=== PATIENT | female | born 1985 | race Asian ===

== ENCOUNTER 2018-01-30 13:03 | Outpatient (REF) | payer BC, SELFPAY | END 2018-01-30 13:23 | LOC: NCHCN 13:03 | PROVIDERS: PCP Family Medicine; Visit Provider Family Medicine | DX: N39.0 Urinary tract infection, site not specified (principal) | CPT/HCPCS: 87086 ==

== ENCOUNTER 2018-04-24 10:34 | Outpatient (REF) | payer BC, SELFPAY ==
--- NOTE | 2018-04-24 09:30 | PAPFT_PTH ---
PATIENT: Stephen Beckham LOC: [facility] U#:[id number] AGE/SX: 33/F ROOM: RE04/24/[address]: ALFIE Corona : 1985 BED: DIS: 04/24/2018 SPEC #: [id number] RECD: 04/24/18 13:08 STATUS: DEMETRISGiuliana DELCID #: [id number] ÓSCAR: 04/24/18 09:[address]: Gisselle Wall DEPT: [facility] Cytology RECD BY: Hui Dumont ENTERED: 04/24/18 13:09 SP TYPE: PAPFT OTHR DR: eDb Macias Tissues: 1 - CX/ENDOCX FOR PAP SMEARS Procedures: PAP THIN PREP/UVM Screening HPV DNA PROBE Comments: [id number]
[2018-04-25 15:27] LABS: Chlamydia Result Negative; GC Result Negative
== END 2018-04-24 10:54 ==
LOC: LBN 10:34
PROVIDERS: PCP Family Medicine; Visit Provider Nurse Practitioner Family
DX: Z11.3 Encounter for screening for infections with a predominantly sexual mode of transmission (principal); Z12.4 Encounter for screening for malignant neoplasm of cervix; Z11.51 Encounter for screening for human papillomavirus (HPV)
CPT/HCPCS: 87491; 87591; 88142; 87624

== ENCOUNTER 2018-04-30 00:29 | Outpatient (CLI) | payer BC, SELFPAY ==
--- NOTE | 2018-04-30 09:53 | DI.US_ITS ---
SYMPTOM/DIAGNOSIS: LONG IRREGULAR MENSES, N92.6 PELVIC ULTRASOUND: Transabdominal and transvaginal exams were performed. The uterus is retroverted and measures 7.7 x 4.5 x 5.9 cm. No fibroids are identified. The endometrial stripe appears homogeneous and measures 8 mm in thickness. There is a small amount of free fluid. There is a small involuting cyst on the left ovary. No suspicious masses are seen. There is no evidence of torsion. IMPRESSION: Pelvic ultrasound is within normal limits.
== END 2018-04-30 00:49 ==
PROVIDERS: PCP Family Medicine; Visit Provider Nurse Practitioner Family
DX: N92.6 Irregular menstruation, unspecified (principal); N83.292 Other ovarian cyst, left side
CPT/HCPCS: 76830; 76856

== ENCOUNTER 2020-12-24 21:32 | Outpatient (REF) | payer BC, SELFPAY | END 2020-12-24 21:33 | disposition home or self-care (01) | LOC: NCHCN 21:32 | PROVIDERS: PCP Family Medicine; Visit Provider Family Medicine | DX: N39.0 Urinary tract infection, site not specified (principal) | CPT/HCPCS: 87077; 87086; 87186 ==

== ENCOUNTER 2021-04-08 19:22 | Outpatient (REF) | payer BC, SELFPAY ==
[2021-04-08 15:35] LABS: HCT 41.3 % (36.0-46.0); HGB 14.1 g/dL (11.2-15.7); MCH 30.5 pg (27.0-33.0); MCHC 34.1 % (32.0-36.0); MCV 89.4 fL (80-95); MPV 10.4 fL (8.0-11.0); Platelet Count 198 10^3/uL (130-400); RBC 4.62 10^6/uL (3.93-5.22); RDW 11.6 % (11.7-14.6); RDW-SD 37.3 fL; WBC 4.78 10^3/uL (4.4-10.8)
[2021-04-08 16:07] LABS: Anion Gap 7.3 mmol/L (3-11); BUN 13 mg/dL (7-18); CO2 29.7 mmol/L (21.0-32.0); CREATININE 0.6 mg/dL (0.55-1.02); Calcium 8.9 mg/dL (8.5-10.1); Chloride 105 mmol/L (98-107); Glucose 77 mg/dL (74-106); Potassium 4.2 mmol/L (3.5-5.1); Sodium 142 mmol/L (136-145)
[2021-04-08 16:08] LABS: Iron 137 ug/dL (50-170); Total Iron Binding Capacity 339 ug/dL (250-450); Transferrin Sat 40 % (15-50)
== END 2021-04-08 19:23 | disposition home or self-care (01) ==
LOC: NCHCN 19:22
PROVIDERS: PCP Family Medicine; Visit Provider Nurse Practitioner Family
DX: Z83.3 Family history of diabetes mellitus (principal); Z86.2 Personal history of diseases of the blood and blood-forming organs and certain disorders involving the immune mechanism
CPT/HCPCS: 80048; 85027; 83540; 83550

== ENCOUNTER 2021-06-17 20:08 | Outpatient (REF) | payer BC, SELFPAY ==
[2021-06-21 14:30] LABS: Helicobacter pylori Ag, Feces Negative (Negative)
== END 2021-06-17 20:09 | disposition home or self-care (01) ==
LOC: NCHCN 20:08
PROVIDERS: PCP Family Medicine; Visit Provider Family Medicine
DX: K21.9 Gastro-esophageal reflux disease without esophagitis (principal)
CPT/HCPCS: 87338

== ENCOUNTER 2021-06-24 09:52 | Outpatient (REF) | payer BC, SELFPAY ==
--- NOTE | 2021-06-24 09:15 | PAPFT_PTH ---
PATIENT: Stephen Beckham LOC: [facility] U#:[id number] AGE/SX: 36/F ROOM: RE06/24/[address]: ALFIE Corona : 1985 BED: DIS: 06/24/2021 SPEC #: [id number] RECD: 06/24/21 12:41 STATUS: ASHER REQ #: [id number] ÓSCAR: 06/24/21 09:[address]: Gisselle Wall DEPT: [facility] Cytology RECD BY: Hui Dumont ENTERED: 06/24/21 12:42 SP TYPE: PAPFT OTHR DR: Deb Macias Tissues: 1 - CX/ENDOCX FOR PAP SMEARS Procedures: PAP THIN PREP/UVM Screening HPV DNA PROBE Comments: [id number]
== END 2021-06-24 09:53 | disposition home or self-care (01) ==
LOC: LBN 09:52
PROVIDERS: PCP Family Medicine; Visit Provider Nurse Practitioner Family
DX: Z12.4 Encounter for screening for malignant neoplasm of cervix (principal); Z11.51 Encounter for screening for human papillomavirus (HPV)
CPT/HCPCS: 88142; 87624

== ENCOUNTER 2021-07-15 18:10 | Outpatient (REF) | payer BC, SELFPAY | END 2021-07-15 18:11 | disposition home or self-care (01) | LOC: NCHCN 18:10 | PROVIDERS: PCP Family Medicine; Visit Provider Family Medicine | DX: R35.0 Frequency of micturition (principal) | CPT/HCPCS: 87086 ==

== ENCOUNTER 2021-07-27 01:17 | Emergency (ER) | payer BC, SELFPAY ==
--- NOTE | 2021-07-27 01:19 | ED.GENADUL_ITS ---
Discharge Plan Disposition Patient Disposition: HOME Condition: Good Discharge Details Clinical Impression: Low back pain Primary Care Provider: Deb Macias ED Provider: Jez Armenta Discharge Instructions Additional Instructions: Your urinalysis is normal as is your blood count and chemistries/kidney function. CT scan shows no evidence of kidney stones or appendicitis or other acute pathology. Please follow-up with primary care as planned. Return to ED for fever, vomiting, new or worsening pain, other concerns. Referrals: Deb Macias [Primary Care Provider] - Medical Decision Making Patient presenting with worsening right lower back pain which seems to radiate to the abdomen. Treated for UTI and dysuria resolved but continues with worsening pain. She is afebrile and looks well. Does have right sided CVAT on exam. Complains of pain in the right suprapubic area with mild tenderness but no guarding or rebound. Urine test is negative. Urinalysis sent. IV established and CBC, BMP sent. Ketorolac given for pain and CT abdomen pelvis to evaluate for possible kidney stone ordered. Patient's urinalysis is completely negative. CBC and BMP normal. CT scan of the abdomen pelvis is negative for any acute pathology, specifically no kidney stones or evidence of appendicitis. Patient will be discharged home to follow- up with primary care as previously scheduled. May consider outpatient pelvic ultrasound but has just seen [employer] for her yearly annual less than a month ago. Return to ED for fever, vomiting, new or worsening pain, or other concerns. Lab Data Lab results reviewed: Yes I reviewed the patient's lab results. HPI General Mode of arrival: ambulatory . Date/Time Provider Initiated Documentation: 07/27/21 01:19 . Limitations to Documentation: no limitations . Information obtained by: patient and RN notes reviewed . HPI Narrative: Patient presents to ED with right lower back pain that radiates to the right lower abdomen. Patient reports having a UTI diagnosed by PCP and was on cephalexin for 10 days. She had dysuria with this in addition to the pain. Pain continues to get worse but dysuria resolved. She denies fever. She denies vomiting or diarrhea. She does endorse some mild nausea. Pain does seem to come and go to some degree and seems worse tonight. She reports having a UTI last fall as well. She is noted right back discomfort since then intermittently. She does have an appointment to see PCP this week but pain seemed worse tonight and she was concerned for kidney stone and came to be evaluated. Related Data Allergies Allergy/AdvReac Type Severity Reaction Status Date / Time doxycycline Allergy Severe Other (See Unverified 07/27/21 01:29 Comment) Review of Systems Narrative: As documented in HPI otherwise negative as below. Const: no fever, chills, weakness Resp: no cough, SOB, pleuritic pain CV: no CP, diaphoresis, edema, syncope GI: no vomiting, diarrhea Neuro: no headache, numbness, focal weakness, confusion PFSH All Active Problems (Updated 07/27/21 @ 04:35 by Jez Armenta MD) Low back pain (Acute) Irregular bleeding (Acute) Medical History No significant past medical history Surgical History section X 2 ( first Breech) Family History Mother No problems noted. Father Diabetes Social History Smoking/Tobacco Use Status: Never Smoking risk assessment performed?: Yes Alcohol Intake: never Drug use: Never Substance use type: does not use Do you feel safe at home: No Do you feel safe in your relationship?: No Female Reproductive History Menstrual control method: condoms History History 0 Para Hx # Term Pregnancies Multiple births Hx # Pregnancies Ectopic pregnancies AB induced Hx Number of Living Children AB spontaneous Exam Narrative Exam Narrative: Const: Thin female in NAD. HEENT: NC/AT. Normal facial exam. Eyes: Normal conjunctiva and sclera. Neck: Supple. Trachea midline. Lungs: Normal respiratory effort. Lungs are clear. Cor: RRR without murmur/gallop. Good radial pulses. GI: Soft and ND. Mild right suprapubic tenderness without guarding or rebound. Back: R CVAT Neuro: A+O x 3. Normal speech, mentation, gait. Cranial nerves II - XII grossly intact. No gross motor or sensory deficit. Ext: No C/C/E. Skin: Warm and dry without rash.
[2021-07-27 01:25] VITALS: BP 112/82; PULSE 73; RESP 16; TEMP 36.8; O2SAT 98
[2021-07-27 01:33] LABS: Bilirubin Negative (Negative); Blood Negative (Negative); Clarity Clear (Clear); Glucose Negative (Negative); Ketones Negative (Negative); Leukocyte Esterase Negative (Negative); Nitrite Negative (Negative); Urobilinogen 0.2 EU/dL (Up TO 0.2)
[2021-07-27] MEDS: Ketorolac 15 MG/ML VIAL IVP (01:53)
[2021-07-27 01:59] LABS: Absolute Basophil Count 0.02 10^3/uL (0.0-0.2); Absolute Eosinophil Count 0.35 10^3/uL (0.0-0.7); Absolute Lymphocyte Count 1.94 10^3/uL (1.2-3.4); Absolute Monocyte Count 0.44 10^3/uL (0.1-0.8); Absolute Neutrophil Count 2.93 10^3/uL (1.2-6.7); Basophils % 0.4; Eosinophils % 6.2; HCT 40.3 % (36.0-46.0); HGB 13.7 g/dL (11.2-15.7); Lymphocytes % 34.2; MCH 30.6 pg (27.0-33.0); MPV 9.4 fL (8.0-11.0); Monocytes % 7.7; Neutrophils % 51.5; Platelet Count 165 10^3/uL (130-400); RBC 4.48 10^6/uL (3.93-5.22); RDW 11.4 % (11.7-14.6); RDW-SD 37.6 fL; WBC 5.68 10^3/uL (4.4-10.8)
--- NOTE | 2021-07-27 02:05 | DI.CT_ITS ---
Exam(s) CT RENAL COLIC WO EXAM: CT RENAL COLIC WO CLINICAL HISTORY: right flank/abd pain. TECHNIQUE: Imaging Protocol: Axial computed tomography images with coronal and sagittal reformatted images were created and reviewed. COMPARISON: No exams were available for comparison FINDINGS: Lack of IV contrast does limit evaluation of the abdominal pelvic organs. ABDOMEN: Lung Bases: Normal where visualized. Liver: Normal density. No measurable mass. Gallbladder and biliary tract: No radiodense calculus or biliary ductal dilation. Pancreas: Normal density, no abnormal calcifications or inflammatory process. Spleen: Normal. Kidneys: Normal size, contour and axis.No radiodense stones or obstructive uropathy. No masses seen. Adrenal glands: No mass is seen. Lymph nodes: Within normal limits. Abdominal Aorta: Abdominal portion non-dilated. PELVIS: Bladder:Symmetric distention, no gross wall thickening. Bowel: No obstruction or bowel wall thickening. Appendix is unremarkable. There is stool throughout the colon which may reflect constipation. Peritoneal cavity: There is a trace amount of free fluid in the pelvis which is likely physiologic. No free air. Reproductive organs: Within normal limits. Bones: Within normal limits. Soft Tissues: Within normal limits. IMPRESSION: No evidence of nephrolithiasis or hydronephrosis. RADIATION DOSE DELIVERED: 459.38mGy.cm Total DLP DATA REPOSITORY: All CT scans at this facility are submitted to the National Radiology Data Registry (NRDR) Dose Index Registry (DIR) with the [employer] (ACR). RADIATION OPTIMIZATION: All CT scans at this facility use at least one of these dose optimization te chniques: automated exposure control; mA and/or kV adjustment per patient size (includes targeted exa ms where dose is matched to clinical indication); or iterative reconstruction.
[2021-07-27 02:06] LABS: Anion Gap 4.7 mmol/L (3-11); BUN 14 mg/dL (7-18); CO2 28.3 mmol/L (21.0-32.0); CREATININE 0.6 mg/dL (0.55-1.02); Calcium 8.6 mg/dL (8.5-10.1); Chloride 104 mmol/L (98-107); Glucose 101 mg/dL (74-106); Potassium 3.6 mmol/L (3.5-5.1); Sodium 137 mmol/L (136-145)
--- NOTE | 2021-07-27 04:27 | DI.VRAD_ITS ---
PROCEDURE INFORMATION: Exam: CT Abdomen And Pelvis Without Contrast Exam date and time: 07/27/2021 2:05 AM Age: 36 years old Clinical indication: Abdominal pain and other: R flank; Localized; Right lower quadrant (rlq); Prior surgery; Surgery date: 6+ months; Surgery type: 2 c-sections; Patient HX: Right flank/abd pain TECHNIQUE: Imaging protocol: Computed tomography of the abdomen and pelvis without contrast. Radiation optimization: All CT scans at this facility use at least one of these dose optimization techniques: automated exposure control; mA and/or kV adjustment per patient size (includes targeted exams where dose is matched to clinical indication); or iterative reconstruction. COMPARISON: US PELVIS TRANSVAGINAL 04/30/2018 3:53 PM FINDINGS: Lungs: The visualized lung bases demonstrate no focal airspace opacification or pleural effusion. Heart: The visualized heart is within normal limits for size. There is no evidence of pericardial abnormality. Liver: The liver is normal in size and contour. Gallbladder and bile ducts: The gallbladder is distended with normal wall thickness and does not demonstrate calcified gallstones. No intra- or extra-hepatic biliary ductal dilatation. Pancreas: The pancreas appears normal. Spleen: The spleen appears normal. Adrenal glands: The adrenals appear normal. Kidneys and ureters: The kidneys empty into non-dilated ureters. No renal or ureteral stones are identified. No perinephric or periureteral fat tissue stranding is identified. Stomach and bowel: The stomach is appropriately distended and without wall abnormalities. The small bowel loops are not abnormally dilated. The large bowel loops are not abnormally. Appendix: No signs of appendicitis. Intraperitoneal space: Trace free fluid in the pelvis, likely physiologic. Arteries: Unremarkable. No abdominal aortic aneurysm. Lymph nodes: There are no enlarged lymph nodes. Urinary bladder: The urinary bladder is not well distended, therefore not well evaluated. Reproductive: The uterus is retroverted. Bones/joints: Review of the bone windows demonstrates no significant abnormality. Soft tissues: Unremarkable. IMPRESSION: 1. No renal or ureteral stones identified. No signs of urinary obstruction. 2. No signs of appendicitis. 3. Trace free fluid in the pelvis, likely physiologic. COMMENTS: Evaluation of solid organs and vascular structures is limited as no IV contrast was administered. Dictated and Authenticated by: James Bauman MD. Ordering:GABRIELLE Story MD
[2021-07-27 04:47] VITALS: BP 94/25; PULSE 60; RESP 16; O2SAT 16
== END 2021-07-27 04:48 | disposition home or self-care (01) ==
PROVIDERS: Emergency Provider Emergency Medicine; PCP Family Medicine
DX: M54.50 Low back pain, unspecified (principal); R10.9 Unspecified abdominal pain
CPT/HCPCS: 80048; 81025; 96374; 99284; 74176; 81003; 85025; 99283; J1885; J3490

== ENCOUNTER 2022-03-11 21:57 | Outpatient (REF) | payer BC, SELFPAY | END 2022-03-11 21:58 | disposition home or self-care (01) | LOC: LBN 21:57 | PROVIDERS: PCP Family Medicine; Visit Provider Nurse Practitioner Family | DX: N39.0 Urinary tract infection, site not specified (principal) | CPT/HCPCS: 87086 ==

== ENCOUNTER 2022-04-18 13:14 | Outpatient (REF) | payer BC, SELFPAY ==
[2022-04-18 21:04] LABS: Bilirubin Negative (Negative); Blood Negative (Negative); Clarity Clear (Clear); Glucose Negative (Negative); Ketones Negative (Negative); Leukocyte Esterase Negative (Negative); Nitrite Negative (Negative); Specific Gravity <= 1.005 (1.005-1.025); Urobilinogen 0.2 EU/dL (Up TO 0.2)
== END 2022-04-18 13:15 | disposition home or self-care (01) ==
LOC: LBN 13:14
PROVIDERS: PCP Family Medicine; Visit Provider Physician Assistant
DX: R30.0 Dysuria (principal); R35.0 Frequency of micturition
CPT/HCPCS: 81003

== ENCOUNTER 2022-09-02 12:51 | Outpatient (REF) | payer BC, SELFPAY ==
[2022-09-02 13:06] LABS: Bilirubin Negative (Negative); Blood Large (Negative); Clarity Clear (Clear); Glucose Negative (Negative); Ketones Negative (Negative); Leukocyte Esterase Moderate (Negative); Nitrite Negative (Negative); Specific Gravity <= 1.005 (1.005-1.025); Urobilinogen 0.2 mg/dL (Up to 0.2); pH 6.5 (5-8)
[2022-09-02 13:12] LABS: Bacteria Rare HPF (Negative); C & S Indicated? Yes; Casts Negative LPF (Negative); Crystals Negative HPF (Negative); Epithelial Cells Few HPF (Negative); Mucus Negative (Negative); WBC 20-50 HPF (0-5)
== END 2022-09-02 12:52 | disposition home or self-care (01) ==
LOC: LBN 12:51
PROVIDERS: PCP Family Medicine; Visit Provider Physician Assistant
DX: N39.0 Urinary tract infection, site not specified (principal)
CPT/HCPCS: 81003; 81015; 87086

== ENCOUNTER 2022-09-26 09:41 | Day surgery (SDC) | payer BC, SELFPAY ==
--- NOTE | 2022-09-25 19:36 | W.PM.DSUDISC ---
Date of service: 09/26/22 Time of Service: 12:34 Discharge Plan Disposition Patient Disposition: Home Condition: Good Discharge Details Reason For Visit: Bidirectional diagnostic endoscopy Attending Provider: Vince Cage Primary Care Provider: Deb Macias Home Meds and New Rx's Prescriptions: Continued AZO D-Mannose 500 mg capsule 500 mg PO DAILY PRN ondansetron 4 mg tablet,disintegrating 4 mg PO Q6H PRN (Reason: nausea and vomiting) Qty: 4 0RF Rx Instructions: May take 1 every 6 hours as needed for nausea amitriptyline 10 mg tablet 10 mg PO QHS Qty: 90 1RF Patient Comments: pt. has not started yet will start after colonoscopy vitamin B complex Tablet 1 tab PO DAILY digestive enzymes Capsule 1 cap PO DAILY Rx Instructions: administer with food; swallow whole; do not crush/chew/dissolve/break/cut multivitamin Tablet 1 tab PO DAILY Acidophilus Tablet,Chewable 1 tab PO DAILY Discharge Instructions Instructions: Colorectal Polyps (GEN) Additional Instructions: Yesong, we were able to complete the upper and lower endoscopy today without any difficulty. Your EGD was grossly normal. Anatomy was as I would expect, and I did not see any signs of inflammation or irritation of your esophagus, stomach, or duodenum. I did perform biopsies of all of these locations like we talked about before hand. During your colonoscopy, I did detect 1 polyp. I removed this polyp. Polyps are abnormal growths in the lining of the large intestine. They can be risk factors for colon cancers, and treatment by removal during colonoscopy is the recommended approach. I do not think that this polyp explains your symptoms. The polyp will be sent to the pathologist, and I will get a final report describing the exact nature of it in the next week or so. Like we talked about before the colonoscopy, I also performed multiple biopsies all along the length of your large intestine. We will talk about the results of all these biopsies during your office visit on the . 1. If tolerated, consume a soft, low fiber diet for 1-2 days. 2. Do not drive, drink alcohol, operate machinery, make critical decisions, or do activities that require coordination or balance for 24 hours. 3. Because air was put into your colon during the procedure, expelling air from your rectum (passing gas or farting) is normal. 4. You may not have a bowel movement for 1-3 days because of the colonoscopy prep. This is normal. 5. You may experience a sore throat for 24 to 48 hours. You may use throat lozenges or gargle with warm salt water to relieve the discomfort. 6. Because air was put into your stomach during the procedure, you may experience some belching. 7. Go directly to the emergency room if you notice any of the following: Develop chills (warm to touch), or if you have a thermometer and your temperature is above 101 Difficulty breathing or difficultly swallowing Persistent vomiting Severe abdominal pain, other than gas cramps Severe chest pain Black, tarry stools Any bleeding ? exceeding one tablespoon 8. Call your physician if the site where your intravenous was started becomes red, swollen, painful, and warm to touch. 9. Your physician has reviewed your pre-procedure medications. Please continue to take those medications as previously ordered. You will be given specific information/education regarding any changes to your medications before leaving. Activity:: Activity as Tolerated Diet:: As Tolerated Discharge Orders Discharge Orders: Discharge Order (Routine); Ordered 09/25/22 Ordered By: Vince Cage DS: Diagnosis Discharge Diagnosis (1) RLQ abdominal pain: Status: Acute Asessment and Plan: Follow-up on biopsy results. Follow-up in the office on October 12
--- NOTE | 2022-09-25 19:39 | ENDO_ITS ---
Date of service: 09/26/22 Time of Service: 12:39 Endoscopy Report DATE OF PROCEDURE: 09/26/22 PRE-OP DIAGNOSIS: Abdominal pain POST-OP DIAGNOSIS: same PROCEDURE: EGD with biopsy and colonoscopy with polypectomy and biopsies SURGEON: Vince Cage ANESTHESIA TYPE: General:No Airway ESTIMATED BLOOD LOSS: 20 PATHOLOGY: other (Duodenal biopsies, biopsies of gastric antrum and body, esophageal biopsies; colon polyp at 50 cm, random colon biopsies) COMPLICATIONS: None DISPOSITION: same day INDICATIONS: Stephen is a 37 year old woman with abdominal pain, bloating and a right lower quadrant mass PREP: Miralax/Dulcolax PROCEDURE START TIME: 11:57 PROCEDURE END TIME: 12:22 COLONOSCOPY RETRACTION TIME: 9 FINDINGS: Normal Z-line at 40 cm; rectal polyp at 50 cm PROCEDURE DESCRIPTION: After the initiation of monitored anesthetic care, and with the assistance of a bite block, I advanced a standard gastroscope through the mouth past the hypopharynx and into the esophagus.? Under the direct vision of the scope, I advanced down the esophagus into the stomach.? Once I entered the stomach, I performed a brief inspection, followed by retroflexion towards the gastric cardia.? This appeared normal.? After that, I gently advanced the scope around the incisura angularis and examined the pylorus.? This also appeared normal.? Next, I advanced the scope through the pylorus into the duodenum.? The mucosa was pink and healthy appearing.? There were no abnormalities.? I was able to visualize bile draining into the duodenum through the ampulla Vater. I did perform random biopsies of the duodenum. ?Next, I began retracting the endosco pe.? I brought the camera back into the stomach and perform random biopsies of the gastric antrum and the gastric body. Next, I gently desufflated some of the stomach, and brought this camera up to the GE junction. The GE junction and Z- line were normal-appearing at 40 cm.. ?Finally, I withdrew the scope along the length of the esophagus taking great care to examine the entirety of the mucosa.? I performed random biopsies of the esophagus. I did not appreciate any abnormalities. We then rolled Stephen into left lateral decubitus position.I performed external anorectal exam..? Perineum and skin were normal, as was the anal verge.? There was no evidence of external hemorrhoids.? Next, I performed a digital rectal exam.? I did not appreciate any abnormal findings.? Next, I advanced a colo noscope into the rectal vault.? I performed retroflexion.? This appeared normal.? Using insufflation, I then advanced the colonoscope beyond the rectal folds and into the sigmoid colon before advancing towards the cecum.? The quality of the prep was excellent.? The colon was quite redundant. The scope was noted to be in the cecum by identification of the ileocecal valve and appendiceal orifice.? I then began withdrawing the colonoscope using repeated irrigation as necessary for full evaluation of the colonic mucosa. I performed random biopsies of the cecum, ascending, and transverse colons. I also performed random biopsies of the descending colon. Around 50 cm from the anal verge I identified a 0.25 cm polyp. ?It appeared pedunculated in character. ?I was able to remove this with a cold forcep polypectomy. ?I examined the site, and there was minimal bleeding. ?Once this was completed, I continued to withdraw the scope and examine the remainder of the colonic mucosa.?Once the scope was withdrawn to the level of the rectum, great care was taken to examine portions of the rectal folds.? Finally, the scope was withdrawn and the patient was brought to the same-day surgery recovery unit as the anesthetic wore off. ?The findings and instructions were shared with the patient prior to discharge.
[2022-09-26 10:38] VITALS: BP 106/63; PULSE 77; RESP 16; TEMP 36.5; O2SAT 100
[2022-09-26] MEDS: Lactated Ringers 1,000 ML 80 ML IV (10:50)
--- NOTE | 2022-09-26 11:20 | W.ANESPRE ---
General Info Date of Service Date Performed: 09/26/22 Height: 5 ft 6.5 in Weight: 52.8 kg Body Mass Index (BMI): 18.5 Surgical Procedure: Operation Date: 09/26/22 11:20 Proposed Procedure Side Surgeon p Colonoscopy/Gastroscopy Vince Cage MD Meds Allergies and Home Medications Allergies Allergy/AdvReac Type Severity Reaction Status Date / Time doxycycline Allergy Severe Other (See Unverified 09/26/22 10:33 Comment) Home Medication Medication Instructions Recorded Lactobacillus acidophilus 1 tab PO DAILY 03/21/22 (Acidophilus chewable tablet) digestive enzymes 1 cap PO DAILY 03/21/22 multivitamin 1 tab PO DAILY 03/21/22 vitamin B complex 1 tab PO DAILY 03/21/22 ondansetron 4 mg disintegrating 4 mg PO Q6H PRN nausea and 05/17/22 tablet vomiting #4 tabs d-mannose 500 mg capsule (AZO 500 mg PO DAILY PRN 05/31/22 D-Mannose) amitriptyline 10 mg tablet 10 mg PO QHS #90 tabs 09/20/22 Current Visit Medications: Current Medications Generic Name Dose Route Start Last Admin Trade Name Freq PRN Reason Stop Dose Admin Hyoscyamine Sulfate 0.125 mg 09/25/22 19:41 Hyoscyamine 0.125 Mg Sl/Oral/Chew SL 10/25/22 19:40 DIRECTED PRN Ringer's Solution 1,000 mls @ 80 mls/hr 09/26/22 06:00 09/26/22 10:50 IV 09/26/22 23:59 80 mls/hr INFUSION CHARO Administration IV Miscellaneous Supplies 1 each 09/26/22 06:00 Iv Access IV 09/26/22 23:59 DIRECTED CHARO Ondansetron HCl 4 mg 09/25/22 19:41 Ondansetron 4 Mg/2 Ml Vial IVP 10/25/22 19:40 Q4H PRN PRN Nausea / Vomiting Sodium Chloride 0 ml 09/26/22 06:00 Normal Saline Flush 10 Ml Syr IV 09/26/22 23:59 PRN PRN Sodium Chloride 0 ml 09/26/22 06:00 Normal Saline 10 Ml Vial IJ 09/26/22 23:59 DIRECTED PRN Sterile Water 0 ml 09/26/22 06:00 Water,Injection,Sterile 10 Ml Vial IJ 09/26/22 23:59 DIRECTED PRN PFSH Active Problems Active Problems: Problem Status Onset Code Irregular bleeding N92.6 Lactose intolerance E73.9 Hematuria R31.9 Urinary frequency R35.0 Facial numbness R20.0 Anxiety F41.9 Lump of breast, right N63.10 GERD (gastroesophageal reflux disease) K21.9 Interstitial cystitis N30.10 RLQ abdominal pain R10.31 Bloating R14.0 Burping R14.2 Medical History Medical History (Updated 09/26/22 @ 10:37 by Pricilla Lozano) Anemia Medical History Comments:: pt. reports first c section pt. reports she woke up Surgical History Surgical History section X 2 ( first Breech) Tobacco Smoking/Tobacco Use Status: Never Alcohol Alcohol Intake: never Substance Use Substance use: Never Substance use type: does not use Prental History History 2 Para 2 Hx # Term Pregnancies Multiple births Hx # Pregnancies Ectopic pregnancies AB induced Hx Number of Living Children AB spontaneous Vital Signs and Lab Results Vital Signs Most Recent Vital Signs in EMR: Most Recent Vital Signs Temp Pulse Resp BP Pulse Ox 36.5 C 77 16 106/63 100 09/26/22 10:38 09/26/22 10:38 09/26/22 10:38 09/26/22 10:38 09/26/22 10:38 Point of Care Results Point of Care Results: POC- Test(urine) Negative 09/26/22 10:26 Lab Results Blood Type / Crossmatch: No Data to Display Complete Blood Count: No Data to Display Complete Metabolic Panel: No Data to Display Liver Function Panel: No Data to Display Coagulation Panel: No Data to Display Cardiac Panel: No Data to Display Arterial Blood Gas: No Data to Display Venous Blood Gas: No Data to Display Pancreas Panel: No Data to Display Thyroid Panel: No Data to Display Infectious Disease: No Data to Display Blood Cultures: No Data to Display Toxicology Panel: No Data to Display Panel: No Data to Display Anesthesia Assessment and Plan Anesthesia History Personal History: Other Family History: No Family History of Anesthesia Complications Exercise Tolerance Exercise Tolerance: Metabolic Equivalents>4 Cardiac & Pulmonary Exam Cardiac Exam: Normal S1/S2 Heart Sounds Pulmonary Exam: Clear Bilateral Breath Sounds Implantable Cardiac Device Does patient have a Pacemaker or an ICD?: No Airway Exam Known Difficult Airway: No Mallampati Class: 3 Mouth Opening: Narrow (< 3cm) Thyromental Distance: Greater than 3 cm Neck Range of Motion: Full ROM Neck Circumference: Normal Teeth Condition: Normal Dentition ASA Classification ASA Score: ASA 2 Emergency Case?: No NPO Status NPO Status: NPO Clears >2 hours, Solids >8 hours Status Status: Negative HCG Anesthesia Plan Resuscitation Status: Full Code Anesthesia Technique: General Anesthesia Airway Planned: Natural Airway Monitors Used: Standard Monitors Preoperative Comments:: 37 yo female with abd pain for colo/EGD. Sig PMHx: anxiety, GERD, anemia, never smoker, denies major.
[2022-09-26 11:22] VITALS: BMI 18.5
--- NOTE | 2022-09-26 12:00 | STOM_PTH ---
PATIENT: Stephen Beckham LOC: [facility] U#:[id number] AGE/SX: 37/F ROOM: RE09/26/[address]: Vince Cage MD : 1985 BED: DIS: 09/26/2022 SPEC #: [id number] RECD: 09/26/22 13:11 STATUS: ASHER RE #: [id number] ÓSCAR: 09/26/22 12:[address]: Vince Cage DEPT: Surgical Specimen RECD BY: Hui Dumont ENTERED: 09/26/22 13:13 SP TYPE: STOMACH OTHR DR: Deb Macias Tissues: 1 - BIOPSY BOWEL 2 - STOMACH BIOPSY 3 - STOMACH BIOPSY 4 - ESOPHAGUS BIOPSY 5 - BIOPSY BOWEL 6 - BIOPSY BOWEL Procedures: GROSS AND MICRO LEVEL 4 Comments: [id number]
[2022-09-26 12:30] VITALS: BP 96/58; PULSE 88; RESP 16; TEMP 36.4; O2SAT 99
--- NOTE | 2022-09-26 12:41 | W.ANESPOSTOP ---
Postoperative Evaluation Date, Time and Location Date Performed: 09/26/22 Time Performed: 12:41 Patient Location: Day Surgery Unit Vital Signs Most Recent Imported Vital Signs: Most Recent Vital Signs Temp Pulse Resp BP Pulse Ox 36.4 C L 88 16 96/58 L 99 09/26/22 12:30 09/26/22 12:30 09/26/22 12:30 09/26/22 12:30 09/26/22 12:30 Pain Score Most Recent Pain Score: Most Recent Pain Score Pain Level 0 09/26/22 12:30 Assessment Mental Status: Awake (Alert & Oriented to Patient Baseline) Airway and Respiratory Function: Patent airway with normal (patient baseline) respiratory exam Cardiovascular Function: Hemodynamically Stable Hydration Status: Adequately Hydrated Nausea & Vomiting: No Nausea or Vomiting Pain: Pt. Denies Any Pain Peripheral Nerve Block: Patient did not receive a nerve block
[2022-09-26 12:55] VITALS: BP 108/61; PULSE 68; RESP 16; TEMP 36.8; O2SAT 100
== END 2022-09-26 13:45 | disposition home or self-care (01) ==
PROVIDERS: PCP Family Medicine; Visit Provider Surgery
PROC: (CPT 45380; principal; 2022-09-26 11:15)
DX: R10.31 Right lower quadrant pain (principal); R10.9 Unspecified abdominal pain; D12.5 Benign neoplasm of sigmoid colon; Q43.8 Other specified congenital malformations of intestine
CPT/HCPCS: 45380; 43239; 88305; J2001

== ENCOUNTER 2023-04-26 12:39 | Outpatient (REF) | payer BC, SELFPAY ==
[2023-04-26 21:42] LABS: Bilirubin Negative (Negative); Blood Large (Negative); Clarity Clear (Clear); Glucose Negative (Negative); Ketones Negative (Negative); Leukocyte Esterase Moderate (Negative); Nitrite Negative (Negative); Urobilinogen 0.2 mg/dL (Up to 0.2); pH 6.5 (5-8)
[2023-04-26 21:57] LABS: Bacteria Rare HPF (Negative); C & S Indicated? Yes; Casts Negative LPF (Negative); Crystals Negative HPF (Negative); Epithelial Cells Rare HPF (Negative); Mucus Negative (Negative); Other Cells Rare Renal (Negative); RBC Negative HPF (0-2)
== END 2023-04-26 12:40 | disposition home or self-care (01) ==
LOC: LBN 12:39
PROVIDERS: PCP Family Medicine; Visit Provider Nurse Practitioner Family
DX: R30.0 Dysuria (principal); R39.89 Other symptoms and signs involving the genitourinary system
CPT/HCPCS: 81003; 81015; 87086; 87480; 87510; 87660

== ENCOUNTER 2023-04-28 18:58 | Outpatient (REF) | payer BC, SELFPAY | END 2023-04-28 18:59 | disposition home or self-care (01) | LOC: LBN 18:58 | PROVIDERS: PCP Family Medicine; Visit Provider Physician Assistant | DX: N39.0 Urinary tract infection, site not specified (principal); R82.89 Other abnormal findings on cytological and histological examination of urine | CPT/HCPCS: 87086 ==

== ENCOUNTER 2023-05-22 18:01 | Outpatient (REF) | payer BC, SELFPAY ==
[2023-05-22 14:39] LABS: Bilirubin Negative (Negative); Blood Negative (Negative); Clarity Clear (Clear); Glucose Negative (Negative); Ketones Negative (Negative); Leukocyte Esterase Negative (Negative); Nitrite Negative (Negative); Specific Gravity 1.015 (1.005-1.025); Urobilinogen 0.2 mg/dL (Up to 0.2)
== END 2023-05-22 18:02 | disposition home or self-care (01) ==
LOC: LBN 18:01
PROVIDERS: PCP Family Medicine; Referring Provider Nurse Practitioner Gerontology; Visit Provider Nurse Practitioner Gerontology
DX: R30.0 Dysuria (principal)
CPT/HCPCS: 81003; 87086

== ENCOUNTER 2024-05-13 12:32 | Outpatient (REF) | payer BC, SELFPAY ==
[2024-05-13 21:35] LABS: Bilirubin Negative (Negative); Blood Negative (Negative); Clarity Clear (Clear); Glucose Negative (Negative); Ketones Negative (Negative); Leukocyte Esterase Negative (Negative); Nitrite Negative (Negative); Specific Gravity <= 1.005 (1.005-1.025); Urobilinogen 0.2 mg/dL (Up to 0.2); pH 5.5 (5-8)
== END 2024-05-13 12:33 | disposition home or self-care (01) ==
LOC: LBN 12:32
PROVIDERS: PCP Nurse Practitioner Family; Visit Provider Physician Assistant
DX: R39.9 Unspecified symptoms and signs involving the genitourinary system (principal); N39.0 Urinary tract infection, site not specified; R82.89 Other abnormal findings on cytological and histological examination of urine
CPT/HCPCS: 81003; 87086